=== PATIENT | male | born 1960 | race Two or more races ===

== ENCOUNTER 2021-07-11 18:45 | Emergency (ER) | payer SELFPAY ==
[~2021-07-11] VITALS: Ht 165.1 cm; Wt 67.6 kg
[2021-07-11 19:48] LABS: Basophils # (auto) 0 10 ^3/uL (0-0.2); Basophils % (auto) 0.5 % (0.0-2.0); Eosinophils # (auto) 0 10 ^3/uL (0-0.8); Eosinophils % (auto) 0.8 % (0.0-7.0); Hematocrit 40.4 % (41.0-53.0); Hemoglobin 13.5 g/dL (13.5-17.5); Lymphocytes # (auto) 2.9 10 ^3/uL (0.4-5.4); Lymphocytes % (auto) 48.4 % (10.0-50.0); Mean Corpuscular Hemoglobin 28.7 pg (28.0-32.0); Mean Corpuscular Hgb Conc. 33.3 g/dL (32.0-36.0); Mean Corpuscular Volume 86.1 fL (80.0-100.0); Monocytes # (auto) 0.5 10 ^3/uL (0-1.3); Neutrophils # (auto) 2.6 10 ^3/uL (1.6-8.6); Neutrophils % (auto) 42.3 % (37.0-80.0); Nucleated Red Blood Cells % 0.1 %; Red Blood Cells 4.69 10^6/uL (4.5-5.90); Red Cell Distribution Width 13.9 % (11.8-14.3); White Blood Cell 6.1 10^3/uL (4.4-10.8)
[2021-07-11 20:10] LABS: Albumin 4.3 g/dL (3.4-5.0); Calcium 8.9 mg/dL (8.5-10.1); Potassium 3.6 mmol/L (3.5-5.1)
[2021-07-11 20:15] LABS: BUN/Creatinine Ratio 20.2; Bilirubin, Total 0.6 mg/dL (0.2-1.0); Total Protein 7.6 g/dL (6.4-8.2)
[2021-07-12 00:19] LABS: Alcohol, Urine < 3.0 mg/dL (0-10); Amphetamine Screen, Urine NEGATIVE (NEGATIVE); Barbiturate Scree,Urine NEGATIVE (NEGATIVE); Benzodiazephine Screen, Urine NEGATIVE (NEGATIVE); Cannabinoid Screen, Urine NEGATIVE (NEGATIVE); Cocaine Screen, Urine NEGATIVE (NEGATIVE); Opiate Scree,Urine NEGATIVE (NEGATIVE); Phencyclidine Screen, Urine NEGATIVE (NEGATIVE)
[2021-07-12 00:21] LABS: Urine Bacteria NONE SEEN /hpf (None Seen); Urine Blood Negative /uL (Negative); Urine Mucus FEW (None Seen); Urine Specific Gravity 1.012 (1.001-1.035); Urine WBC <1 /hpf (0 - 3)
[2021-07-12 06:13] LABS: Salicylate < 1.7 mg/dL (2.8-20.0)
[2021-07-12 06:18] LABS: Acetaminophen < 2.0 ug/mL (10-30)
[2021-07-12] MEDS ORDERED: ACETAMINOPHEN 325 MG TAB PO ONE (09:45)
[2021-07-14] MEDS ORDERED: IBUPROFEN 600 MG TAB PO ONE ×2 (00:30→21:45)
[2021-07-14] MEDS ORDERED: KETOROLAC TROMETH 30 MG/ML 1ML VIAL IM ONE (03:30)
[2021-07-14] MEDS ORDERED: diphenhdrAMINE HCL 50 MG/1 ML VL IM ONE (03:30)
[2021-07-15 08:47] VITALS: BP 117/70
== END 2021-07-15 08:55 | disposition home or self-care (01) ==
LOC: ER 18:45
DX: R45.851 Suicidal ideations (principal); F32.9 Major depressive disorder, single episode, unspecified; Z20.822 Contact with and (suspected) exposure to COVID-19
CPT/HCPCS: 36415; 80053; 80307; 80320; 80329; 81001; 85025; 87426; 96372

== ENCOUNTER 2024-05-26 21:43 | Emergency (ER) | payer OTHER ==
[~2024-05-26] VITALS: Ht 167.6 cm; Wt 67.3 kg
[2024-05-26 22:03] VITALS: BP 126/97; PULSE 76; RESP 17; TEMP 98.8; O2SAT 97
[2024-05-26] MEDS ORDERED: FLUT1SPR5 (23:51)
[2024-05-26] MEDS ORDERED: PSEU120T2 PO (23:51)
== END 2024-05-27 00:05 | disposition home or self-care (01) ==
LOC: ER 21:43
DX: J30.9 Allergic rhinitis, unspecified (principal); Z79.899 Other long term (current) drug therapy